=== PATIENT | male | born 1945 | race Caucasian/White ===

== ENCOUNTER 2018-09-05 09:32 | Outpatient (CLI) | payer OTHER, SELFPAY ==
--- NOTE | 2018-09-05 09:22 | DI.RAD_ITS ---
SYMPTOMS/DIAGNOSIS: PAIN RT SHOULDER AND LT MIDDLE FINGER RIGHT SHOULDER: There is spurring at the AC joint and tip of the acromion. There is mild spurring at the glenoid and lesser tuberosity. The humeral head appears normally positioned. IMPRESSION: Mild to moderate degenerative changes. LEFT MIDDLE FINGER: The distal interphalangeal joint shows mild joint space narrowing and periarticular spurring. No bony erosions are seen. The proximal interphalangeal joint has a normal appearance. There is mild spurring at the first metacarpal phalangeal joint. 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
== END 2018-09-05 09:52 ==
PROVIDERS: PCP Internal Medicine; Referring Provider Internal Medicine; Visit Provider Orthopaedic Surgery
DX: M25.511 Pain in right shoulder (principal); M19.011 Primary osteoarthritis, right shoulder; M79.645 Pain in left finger(s); M19.042 Primary osteoarthritis, left hand; M71.342 Other bursal cyst, left hand
CPT/HCPCS: 99201; 99213; 73030; 73140

== ENCOUNTER 2018-12-26 11:14 | Day surgery (SDC) | payer OTHER, SELFPAY ==
[2018-12-26 11:34] VITALS: PULSE 59; TEMP 35.8
[2018-12-26 11:42] VITALS: BP 156/82; PULSE 59; RESP 18; TEMP 35.8; O2SAT 100
[2018-12-26] MEDS: Lidocaine 2% Multi-Dose 50 ML VIAL (13:19)
--- NOTE | 2018-12-26 13:49 | PDOC.DSDIS_ITS ---
Discharge Plan Disposition Patient Disposition: HOME Condition: Good Discharge Details Reason For Visit: Excision of mucous cyst R middle finger Attending Provider: Marshall Llanos Primary Care Provider: Mark Anthony Mi Home Meds and New Rx's Prescriptions: New hydrocodone-acetaminophen 5-325 mg tablet 1 tab PO Q6H PRN (Reason: pain) Qty: 7 RF: 0 Continued PreserVision AREDS 7,160-113-100 [id number] Tablet 1 tab PO BID RF: 0 Discharge Instructions Additional Instructions: Keep dressings dry and intact. Follow up with in one week. Use R hand as much as discomfort allows. Take hydrocodone for pain that is NOT relieved by tylenol or ibuprofen. Referrals: Marshall Llanos MD [ [facility] STAFF PHYSICIAN] - (f/u in one week.) Activity:: Activity as Tolerated Remove Dressings/Wound Care:: Do Not Remove Shower/Bathe:: Cover Diet:: As Tolerated Discharge Orders Discharge Orders: Discharge Order (Routine); Ordered 12/26/18 Ordered By: Marshall Llanos DS: Diagnosis Discharge Diagnosis (1) Mucous cyst of digit of right hand: Status: Acute
--- NOTE | 2018-12-27 07:01 | ROE_ITS ---
REPORT OF OPERATIVE PROCEDURE DATE OF PROCEDURE December 26, 2018 PREOPERATIVE DIAGNOSIS Mucous cyst left middle finger. POSTOPERATIVE DIAGNOSIS Mucous cyst left middle finger. PROCEDURE Excision of Mucous cyst left middle finger. ANESTHESIA Digital block 1% Xylocaine solution and 0.5% Marcaine with epinephrine solution. SURGEON Marshall Llanos M.D. INDICATIONS This is a 73-year-old white male with an enlarging mucous cyst on the dorsum of his left middle finge r. This had increased in size which caused a deformity in his fingernail. Excision of mucous cyst was recommended to alleviate his discomfort and correct the deformity of his fingernail. The risk, compl ications of the procedure were explained to the patient in detail preoperatively. DESCRIPTION OF PROCEDURE The patient was taken to the Procedure Room on 12/26/2018. The patient was placed supine on the stretc her. The left hand was prepped and draped free in the usual sterile fashion. I performed a digital b lock at the level of the metacarpal neck of the left middle finger with 1% Xylocaine solution. I then infiltrated around the mucous cyst with 1% Xylocaine solution. An ulnar-based skin flap was then cre ated incorporating the mucous cyst by making an incision through the cuticle of the nail at the very radial side of his mucous cyst, and then curving around the mucous cyst proximally to get back to the midline. The mucous cyst was then elevated along with the overlying skin in the flap. The origin of the cyst was determined and the area was rongeured so there was bleeding tissue. I then used sharp di ssection to peel the mucous cyst off the overlying skin. I used a rongeur to complete the debridement . A digital block was then performed with 0.5% Marcaine with epinephrine solution for postoperative a nalgesia. The skin edges were then loosely approximated with three interrupted #4-0 Nylon sutures. Th e wound was dressed with Xeroform gauze, and then Tubegauz. The patient tolerated the procedure well. He was discharged to the Day Surgery Unit in good condition. The patient was discharged from the Day Surgery Unit with instructions to keep his dressings dry and intact. He will followup with Dr. Llanos in one week for dressing change and wound check. He may use his right hand as much as discomfort allows. He is given a prescription of hydrocodone with APAP 5/325, 1 tablet every 6 hours as needed for pain not relieved by Tylenol or ibuprofen.
== END 2018-12-26 14:15 | disposition home or self-care (01) ==
PROVIDERS: PCP Internal Medicine; Visit Provider Orthopaedic Surgery
PROC: (CPT 26160; principal; 2018-12-26 13:00)
DX: M71.342 Other bursal cyst, left hand (principal)
CPT/HCPCS: 26160

== ENCOUNTER → 2019-01-02 10:31 | Outpatient (BNVA) | payer OTHER, SELFPAY | PROVIDERS: PCP Internal Medicine; Referring Provider Internal Medicine; Visit Provider Orthopaedic Surgery | DX: M67.442 Ganglion, left hand (principal); Z98.890 Other specified postprocedural states; Z47.89 Encounter for other orthopedic aftercare ==

== ENCOUNTER → 2019-01-09 09:34 | Outpatient (BNVA) | payer OTHER, SELFPAY | PROVIDERS: PCP Internal Medicine; Referring Provider Internal Medicine; Visit Provider Orthopaedic Surgery | DX: Z47.89 Encounter for other orthopedic aftercare (principal); M67.442 Ganglion, left hand ==

== ENCOUNTER → 2019-06-24 14:06 | Outpatient (BNVA) | payer OTHER, SELFPAY | PROVIDERS: PCP Nurse Practitioner Family; Referring Provider Internal Medicine; Visit Provider Surgery | DX: R19.4 Change in bowel habit (principal) | CPT/HCPCS: 99203; 99213 ==

== ENCOUNTER 2019-07-02 06:18 | Day surgery (SDC) | payer OTHER, SELFPAY ==
[2019-07-02 06:44] VITALS: BP 141/68; PULSE 64; RESP 16; TEMP 36.2; O2SAT 100
[2019-07-02] MEDS: Lactated Ringers 1,000 ML 80 ML IV (07:00)
--- NOTE | 2019-07-02 07:45 | BOWEL_PTH ---
PATIENT: Sav Rose LOC: [facility] U#:[id number] AGE/SX: 73/M ROOM: RE07/02/[address]: Selene Nelson MD : 1945 BED: DIS: 07/02/2019 SPEC #: [id number] RECD: 07/02/19 12:25 STATUS: KIMBERLY REQ #: [id number] CLOVIS: 07/02/19 07:[address]: Selene Nelson DEPT: Surgical Specimen RECD BY: Anamika Saldana ENTERED: 07/02/19 12:26 SP TYPE: Bowel OTHR DR: Gem Segura Tissues: 1 - BIOPSY BOWEL Procedures: GROSS AND MICRO LEVEL 4 Comments: [id number]
--- NOTE | 2019-07-02 07:57 | W.PM.DSUDISC ---
Discharge Plan Disposition Patient Disposition: HOME Condition: Good Discharge Details Reason For Visit: Colonoscopy Attending Provider: Selene Nelson Primary Care Provider: Gem Segura Home Meds and New Rx's Prescriptions: Continued PreserVision AREDS 7,160-113-100 [id number] Tablet 1 tab PO BID RF: 0 Discontinued polyethylene glycol 3350 17 gram/dose powder 238 g PO ONCE Qty: 238 RF: 0 bisacodyl 5 mg tablet,delayed release (DR/EC) 5 mg PO ONCE Qty: 4 RF: 0 Discharge Instructions Additional Instructions: Findings: One small polyp was removed from the colon. My office will contact you with biopsy results. Follow up: Plan for a screening colonoscopy in 5 years Please call if you develop: fevers >101.5 Nausea or Vomiting Abdominal pain that is not transient DAY SURGERY UNIT POST COLONOSCOPY INSTRUCTIONS 1. Because there will be medication in your system for the next 24 hours, you may feel a little sleepy. Your coordination will be affected. Therefore: a. Do not drive or operate dangerous equipment for 24 hours. b. Do not drink alcohol beverages for 24 hours (not even beer). c. Plan to go home and rest for the day. 2. Generally there are no restrictions on your activity after a day or so has gone by, but you may feel a bit fatigued for a few days. 3 After you arrive home you may have a light meal and return to a normal diet as you can tolerate it without feeling sick to your stomach. 4. After surgery, you may feel pain or discomfort. This should be only transient, but if it persists please contact your doctor. 5. If there are any questions regarding the findings of your procedure, please feel free to contact your doctor. 6. If you are unable to contact your doctor with a problem, contact the hospital at [phone]. 7. Continue all your regular medications unless directed otherwise. I understand the above instructions and have no questions. Signature of Patient or Responsible Adult Escort Date/Time Name of Responsible Adult Escort Signature of Nurse Date/Time Activity:: Activity as Tolerated Diet:: As Tolerated Discharge Orders Discharge Orders: Discharge Order (Routine); Ordered 07/02/19 Ordered By: Selene Nelson DS: Diagnosis Discharge Diagnosis (1) Colon polyp: Status: Acute
[2019-07-02 08:38] VITALS: BP 128/69; PULSE 46; RESP 16; TEMP 36.3; O2SAT 97
--- NOTE | 2019-07-02 09:41 | COLE_ITS ---
DATE OF PROCEDURE: July 02, 2019 PREOPERATIVE DIAGNOSIS: Screening. POSTOPERATIVE DIAGNOSIS: 1. Diminutive ascending colon polyp. 2. Internal hemorrhoids. PROCEDURE: Colonoscopy with cold forceps polypectomy. SURGEON: Selene Nelson M.D. ANESTHESIA: General. INDICATIONS: This is a 73-year-old man whose last colonoscopy was approximately 25 years ago. He antonio s noted that his stools are less regular recently. He has no family history of colon cancer. PROCEDURE: He was placed in the left Dickinson position. Propofol was titrated to sedation. Digital rec toby examination revealed no abnormalities. The scope was advanced to the cecum without difficulty. The ileocecal valve and appendiceal orifice were clearly identified. His prep was excellent. There was a < 1 cm polyp that was removed completely with the cold forceps and sent to pathology, located i n the proximal ascending colon. No other abnormalities were seen throughout the ascending, transvers e, descending, sigmoid colon or rectum, including on retroflex view, with the exception of some promi nent internal hemorrhoids. He tolerated the procedure well and was stable to recovery. He can consi riana a colonoscopy again in five years. He was advised to increase his fiber intake to improve his kavita wel habits. cc: Gem Segura APRN
== END 2019-07-02 09:25 | disposition home or self-care (01) ==
PROVIDERS: PCP Nurse Practitioner Family; Visit Provider Surgery
PROC: 0DJD8ZZ Inspection of Lower Intestinal Tract, Via Natural or Artificial Opening Endoscopic (ICD-10-PCS; CPT 45378; principal; 2019-07-02 07:30)
DX: D12.2 Benign neoplasm of ascending colon (principal); Z12.11 Encounter for screening for malignant neoplasm of colon; K64.8 Other hemorrhoids; R19.4 Change in bowel habit
CPT/HCPCS: 45380; 88305

== ENCOUNTER 2019-07-10 13:48 | Outpatient (REF) | payer OTHER, SELFPAY ==
[2019-07-10 22:11] LABS: HCT 43.5 % (40.0-50.0); HGB 14.2 g/dL (13.5-17.5); Mean Corp. HGB Concentration 32.6 g/dL (32.0-36.0); Mean Corpuscular Hemoglobin 31.7 pg (27.0-33.0); Mean Corpuscular Volume 97.1 fL (80-95); Mean Platelet Volume 10.9 fL (8.0-11.0); Platelet Count 285 x1000/uL (130-400); RBC 4.48 m/cumm (4.50-6.00); RBC Distribution Width 13.8 % (11.8-14.1)
[2019-07-10 22:26] LABS: Anion Gap 8.5 mmol/L (3-11); BUN 18 mg/dL (7-18); CO2 28.5 mmol/L (21.0-32.0); CREATININE 1.22 mg/dL (0.70-1.30); Calcium 9.6 mg/dL (8.5-10.1); Chloride 105 mmol/L (98-107); Estimated GFR 57.91 (mL/min/1.73m2); Glucose 98 mg/dL (74-106); Potassium 4.9 mmol/L (3.5-5.1); Sodium 142 mmol/L (136-145)
== END 2019-07-10 14:08 ==
LOC: NCHCN 13:48
PROVIDERS: PCP Nurse Practitioner Family; Visit Provider Specialist/Technologist Athletic Trainer
DX: Z01.818 Encounter for other preprocedural examination (principal); R69 Illness, unspecified
CPT/HCPCS: 80048; 85027

== ENCOUNTER 2020-07-14 11:30 | Outpatient (CLI) | payer OTHER, SELFPAY ==
--- NOTE | 2020-07-14 11:00 | DI.RAD_ITS ---
EXAM: XR SHOULDER RT COMPLETE 2+V CLINICAL HISTORY: shoulder pain. TECHNIQUE: 2D digital imaging was performed. COMPARISON: CR XR shoulder RT complete 2+V from 09/05/2018 FINDINGS: BONES: No acute fracture is present. No bony destructive lesion is seen. Spurring at the lesser tuber osity versus adjacent calcification. JOINTS: No dislocation present. Mild spurring at the AC joint and glenohumeral joint. SOFT TISSUE: Sternal wires. IMPRESSION: Mild to moderate degenerative changes. Question of a spur versus adjacent calcification of the lesse r tuberosity. DATA REPOSITORY: RADIATION DOSE DELIVERED:
== END 2020-07-14 11:50 ==
PROVIDERS: PCP Nurse Practitioner Family; Referring Provider Nurse Practitioner Family; Visit Provider Orthopaedic Surgery
DX: M19.011 Primary osteoarthritis, right shoulder (principal); S43.004A Unspecified dislocation of right shoulder joint, initial encounter; W01.10XA Fall on same level from slipping, tripping and stumbling with subsequent striking against unspecified object, initial encounter; M25.511 Pain in right shoulder
CPT/HCPCS: 99213; 73030

== ENCOUNTER → 2020-08-11 10:43 | Outpatient (BNVA) | payer OTHER, SELFPAY | PROVIDERS: PCP Nurse Practitioner Family; Referring Provider Nurse Practitioner Family; Visit Provider Student in an Organized Health Care Education/Training Program | DX: M75.21 Bicipital tendinitis, right shoulder; M75.51 Bursitis of right shoulder; W01.0XXA Fall on same level from slipping, tripping and stumbling without subsequent striking against object, initial encounter | CPT/HCPCS: 99214 ==

== ENCOUNTER 2020-08-24 01:55 | Outpatient (CLI) | payer OTHER, SELFPAY ==
--- NOTE | 2020-08-24 08:15 | DI.MRI_ITS ---
EXAM: MR UPPER JOINT RT WO CLINICAL HISTORY: Traumatic rotator cuff tear,FAILED CONSERVATIVE TREATMENTS,RT SHOULDER TECHNIQUE: Multiplanar multisequence MRI of the shoulder was performed. COMPARISON: CR XR SHOULDER RT COMPLETE 2+V from 07/14/2020 CR XR SHOULDER RT COMPLETE 2+V from 07/14/2020 FINDINGS: MARROW:There is no evidence of fracture, Hill-Sachs deformity, nor ominous osseous lesions. ROTATOR CUFF MECHANISM: AC JOINT/ACROMIUM: There are moderate degenerative changes in the acromioclavicular joint. Undersurf dedrick of the acromion is flat.. There is no evidence of os acromiale. Supraspinatus: High-grade complete tear with retraction of the musculotendinous junction to the mid a spect of the humeral head and continuity of fluid between the joint space and subacromial bursa regio n. No prominent muscle atrophy. Infraspinatus: Intact. No evidence of tear nor muscle atrophy. Teres Minor: Intact. No evidence of tear nor muscle atrophy. Subscapularis/anterior cuff: Abnormal signal in the multipennate insertional fibers anterior to the l theresa tuberosity. Partial tearing. Mild atrophy. BICEPS TENDON: Exhibits normal position within the intertubercular groove. There is abnormal signal within the tendon the anchor region and at the labral attachment. LABRUM: Mild increased signal seen in the superior labrum posterior to the biceps attachment.. The p osterior labrum is intact. There is tearing of the inferior labrum. Blunting of the anterior labrum . GLENOHUMERAL JOINT: Prominent joint effusion with extension into the medial recess and down the long head biceps tendon and continuous with the subacromial space due to the large full-thickness tear of the supraspinatus. There is no loose intra-articular body evident. There are degenerative subarticu lar cyst in the lateral humeral head. No obvious capsular tear. The inferior glenohumeral ligament is intact. Small osteophyte noted on the inferior articular surface of the humeral head. Mild narro wing of the Burt cartilage. No prominent chondral defects. QUADRILATERAL SPACE: No evidence of mass in the region of the axillary nerve and dorsal circumflex hu meral vessels. Visualized triceps muscle at this level appears unremarkable. IMPRESSION: 1. There is a large full-thickness tear of the supraspinatus with retraction of the musculotendinous junction to the mid humeral head level and in AP bare area of 3 centimetres. There is no prominent a trophy of the supraspinatus. Infraspinatus appears intact. 2. There is significant signal abnormality consistent with partial tearing of the anterior cuff-subsc apularis. 3. Increased signal is noted within the long head biceps tendon intra-articular aspect but no full-th ickness tear. Mild abnormal signal noted in the superior labrum. Inferior labral tearing is noted. Mild irregularity of the anterior labrum. Posterior labrum appears intact. No evidence of paralabr al cyst. 4. Prominent glenohumeral joint effusion continuity to the subacromial space and subcoracoid recess. Also down the long head biceps tendon sheath. 5. Mild osteoarthritic degenerative changes in the glenohumeral joint. Also degenerative changes in the acromioclavicular joint. DATA REPOSITORY:
== END 2020-08-24 02:15 ==
PROVIDERS: PCP Nurse Practitioner Family; Visit Provider Student in an Organized Health Care Education/Training Program
DX: S46.011A Strain of muscle(s) and tendon(s) of the rotator cuff of right shoulder, initial encounter (principal); M25.411 Effusion, right shoulder; M19.011 Primary osteoarthritis, right shoulder
CPT/HCPCS: 73221

== ENCOUNTER → 2020-09-08 13:07 | Outpatient (BNVA) | payer OTHER, SELFPAY | PROVIDERS: PCP Nurse Practitioner Family; Referring Provider Nurse Practitioner Family; Visit Provider Student in an Organized Health Care Education/Training Program | DX: S46.011D Strain of muscle(s) and tendon(s) of the rotator cuff of right shoulder, subsequent encounter (principal); S43.004D Unspecified dislocation of right shoulder joint, subsequent encounter; X58.XXXD Exposure to other specified factors, subsequent encounter; M75.21 Bicipital tendinitis, right shoulder; M75.51 Bursitis of right shoulder | CPT/HCPCS: 99214; 99215 ==

== ENCOUNTER 2020-09-11 19:36 | Outpatient (REF) | payer OTHER, SELFPAY ==
[2020-09-11 20:38] LABS: ALT 28 U/L (16-63); AST 16 U/L (15-37); Albumin 4.5 g/dL (3.4-5.0); Alkaline Phosphatase 44 U/L (46-116); Anion Gap 6.9 mmol/L (3-11); BUN 21 mg/dL (7-18); CO2 29.1 mmol/L (21.0-32.0); CREATININE 1.29 mg/dL (0.70-1.30); Calcium 9.6 mg/dL (8.5-10.1); Calculated LDL 125 mg/dL (<100); Chloride 105 mmol/L (98-107); Cholesterol 199 mg/dL (<200); Estimated GFR 54.01 (mL/min/1.73m2); Glucose 101 mg/dL (74-106); HDL Cholesterol 50 mg/dL (40-60); Potassium 4.4 mmol/L (3.5-5.1); Sodium 141 mmol/L (136-145); Total Protein 6.9 g/dL (6.4-8.2); Triglyceride 123 mg/dL (<150)
[2020-09-11 21:09] LABS: COMMENT (LAB VIEW ONLY) 40.69 mg/dL; Microalb ug/mg Crea 7.1 ug/mg Cr
== END 2020-09-11 19:56 ==
LOC: NCHCN 19:36
PROVIDERS: PCP Nurse Practitioner Family; Visit Provider Nurse Practitioner Family
DX: I10 Essential (primary) hypertension (principal); K30 Functional dyspepsia; M25.511 Pain in right shoulder
CPT/HCPCS: 80053; 80061; 82043; 82570

== ENCOUNTER 2020-09-14 04:35 | Outpatient (CLI) | payer OTHER, SELFPAY ==
[2020-09-15 14:37] LABS: COVID-19 RT-PCR UVMMC Result Negative (Negative)
== END 2020-09-14 04:55 ==
PROVIDERS: PCP Nurse Practitioner Family; Visit Provider Student in an Organized Health Care Education/Training Program
DX: Z11.52 Encounter for screening for COVID-19 (principal); Z01.818 Encounter for other preprocedural examination
CPT/HCPCS: U0003

== ENCOUNTER 2020-09-17 06:18 | Day surgery (SDC) | payer OTHER, SELFPAY ==
[2020-09-17] VITALS (10 sets, daily range): BP systolic 114–169; BP diastolic 55–92; PULSE 71–79; RESP 13–22; TEMP 36–36.8; O2SAT 97–99
[2020-09-17] MEDS: Lactated Ringers 1,000 ML 100 ML IV (06:58)
[2020-09-17] MEDS: Bupivacaine LIPOSOME/PF 133 MG/10 ML VIAL IJ (07:20)
[2020-09-17] MEDS: Bupivacaine 0.5% Pres-Free 30 ML VIAL (07:20)
[2020-09-17] MEDS: ceFAZolin 2 GM/50 ML BAG IVPB (07:49)
[2020-09-17] MEDS: EPINEPHrine 30 MG/30 ML VIAL (08:31)
[2020-09-17] MEDS: fentaNYL 100 MCG/2 ML VIAL IVP ×2 (11:10→11:18)
--- NOTE | 2020-09-17 11:29 | W.PM.DSUDISC ---
Discharge Plan Disposition Patient Disposition: HOME Condition: Stable Discharge Details Reason For Visit: Right shoulder surgery Attending Provider: Lacho Salgado Primary Care Provider: Gem Segura Home Meds and New Rx's Prescriptions: New aspirin 81 mg tablet,delayed release (DR/EC) 81 mg PO DAILY 14 Days Qty: 14 RF: 0 tramadol 50 mg Tablet 50 mg PO Q8H PRN PRN (Reason: severe pain) Qty: 12 RF: 0 celecoxib 50 mg capsule 50 mg PO DAILY PRN (Reason: pain) Qty: 30 RF: 0 Continued PreserVision AREDS 7,160-113-100 [id number] Tablet 1 tab PO BID RF: 0 amlodipine 5 mg tablet 5 mg PO DAILY RF: 0 omeprazole 20 mg capsule,delayed release(DR/EC) 20 mg PO DAILY RF: 0 Discontinued ibuprofen 800 mg tablet 800 mg PO BID PRN (Reason: pain) Qty: 60 RF: 0 gabapentin 300 mg capsule 300 mg PO DAILY RF: 0 Discharge Instructions Additional Instructions: Surgery: Shoulder arthroscopy with rotator cuff repair, biceps tenodesis, extensive debridement including capsular release, anterior labral Bankart repair, and subacromial decompression. Activity: You should keep your arm at your side in a neutral position at all times except for physical therapy. Do not try to lift or raise your arm using your own muscles. You should use the sling whenever you are out of the house. You may have to adjust the abduction pillow or remove it for comfort. At home it is best to remove the sling and rest the arm on a pillow at your side or support the operative side with your other hand. You may allow the arm to dangle at your side. A physical therapy prescription will be sent electronically to begin in 2-3 weeks. Prescriptions: Aspirin 81 mg take 1 daily to prevent a blood clot for 2 weeks Celecoxib 50 mg take 1 every 24 hours with a meal as needed for moderate pain Tramadol 50 mg take 1 every 8 hours as needed for severe pain You may use [id number] Tylenol (acetaminophen) as needed for mild pain. These pain medications may be taken all at once or in different combinations as needed. Also, recommend Colace (docusate) as a stool softener as surgery and pain medicine cause constipation. Dressings: Remove shoulder bandage after 3 days. Leave the sticky Steri-Strips in place until they fall off or remove them after you shower. Cover the incisions with Band-Aids or leave them open to air. You may shower after 5 days. Follow-up: 10-[address] Salgado You may take off the leg compression stockings this evening at home. You may also leave them on a few days longer if you have a history of leg swelling or edema. Let us know right away if you develop any redness, drainage, fevers, chest pain, or trouble breathing. Do not drink alcohol or drive for at least 24 hours after anesthesia. Please call the office during business hours with any questions or concerns. Referrals: Lacho Salgado MD [ [facility] STAFF PHYSICIAN] - Discharge Orders Discharge Orders: Discharge Order (Routine); Ordered 09/17/20 Ordered By: Lacho Salgado DS: Diagnosis Discharge Diagnosis (1) Tendonitis of long head of biceps brachii of right shoulder: Status: Acute (2) Traumatic tear of right rotator cuff: Status: Acute (3) Bursitis of right shoulder: Status: Acute (4) Dislocation of shoulder, right, closed: Status: Acute
[2020-09-17] MEDS: HYDROmorphone 2 MG/ML VIAL IVP (11:32)
--- NOTE | 2020-09-17 11:50 | W.PM.OP ---
Date of service: 09/17/20 Time of Service: 09:00 Operative Note Operative Note DATE OF PROCEDURE: 09/17/20 PRE-OP DIAGNOSIS: Right shoulder: 1. Rotator cuff tear 2. LHB tendinopathy 3. Bursitis 4. Dislocation POST-OP DIAGNOSIS: same PROCEDURE: Right: 1. Rotator cuff repair, CPT# 99986. This involved repair of the subscapularis and supraspinatus using anchors and sutures to reattach the rotator cuff back to the footprint of the lesser and greater tuberosity. 2. Arthroscopic biceps tenodesis, CPT# 71675. This involved arthroscopically suturing and reattaching the long head of the biceps tendon to the proximal humerus at the superior margin of the bicipital groove at the correct tension. 3. Extensive debridement, CPT# 20967. This involved using arthroscopic hand instruments, power instruments, and radiofrequency instruments to release to release the long head of the biceps tendon and debride areas of labral tearing synovitis within the glenohumeral joint anteriorly, superiorly and posteriorly. MGHL and anterior capsule were released to mobilize the subscapularis tendon and prevent stiffness. Significant scar tissue and rotator cuff tendon remnant were debrided from the humeral head about the lesser and greater tuberosities. 4. Subacromial decompression, CPT# 17336. This involved using arthroscopic power instruments and a radiofrequency wand to complete a bursectomy. 5. Anterior labral Bankart repair, CPT#87899. This involved mobilizing and preparing the anterior inferior glenoid rim for labral repair, which was completed with suture tape and suture anchor. The tax accounting assistant was medically required in order to help assist in techniques above, which require positioning the arm, holding the arthroscope, and manipulating multiple instruments and sutures at the same time. This cannot be done without the help of an experienced tax accounting assistant. SURGEON: Lacho Salgado COMMERCIAL M[employer]GAGE BROKER: Brynn Berger ANESTHESIA: GETA and regional ESTIMATED BLOOD LOSS: 10 PATHOLOGY: none sent COMPLICATIONS: None Patient was transported to: PACU Patient's condition: stable Implants: Arthrex: 4.75mm SwiveLocks x 4 and 2.9mm PushLock x1 Indications: The patient was diagnosed with the above conditions and appropriately indicated for surgical intervention. Please see complete medical record for details. Findings: Exam under anesthesia: Full, symmetrical range of motion without instability Glenohumeral joint: Profound anterior, superior, and posterior synovitis. Is full-thickness retracted supraspinatus tear upper portion subscapularis tear with medial displacement obscuring the MGHL well as impressive, signed and medially dislocated long head of biceps tendon. Long head biceps tendon injection split tear frame of the intra-articular portion as well as degenerative type SLAP tear. Reasonably preserved glenohumeral articular cartilage. Mildly displaced anterior inferior labral tear Bankart type injury. No Hill-Sachs lesion. Intact articular infraspinatus. Subacromial space: Significant bursitis. Full-thickness retracted supraspinatus tear with significant tendon thickening fraying and likely chronic degeneration. Significant tendon remnant over the lateral aspect of the greater tuberosity. Intact infraspinatus. No significant subacromial bone spur. Procedure Description: In the operating room, general anesthesia was induced. Bilateral shoulders were examined. The patient was positioned in the beachchair position. All bony prominences were well-padded. Preoperative antibiotics were administered. The shoulder was prepped and draped in the usual sterile fashion. The correct patient, procedure, and side of the procedure were all verified prior to incision. Starting through the posterior portal a standard complete diagnostic arthroscopy was performed of the glenohumeral joint including inspection of the long head of the biceps, anterior and superior labrum, subscapularis tendon, supraspinatus and infraspinatus tendons, and axillary recess. The glenoid and humeral head cartilage as well as the posterior labrum were inspected from an anterior viewing portal. Significant findings and interventions noted above. Portals were established at the superior anterior lateral as well as anterior locations. The long head biceps tendon was secured using a suture tape cinch mode and then the free and passed through the tendon. The biceps tendon was released from the superior labrum using arthroscopic scissors withdrawn out the superior anterolateral portal. Through the anterior portal the subscapularis tendon and lesser tuberosity were debrided. The [facility] L was released carefully using arthroscopic scissors. Liberator was used to free up the subscapularis anteriorly and posteriorly. Rotator cuff grasper was used to confirm appropriate excursion to the lesser tuberosity with the arm in a neutral position. Lesser tuberosity was pared using mechanical shaver to optimize bone tendon healing. Using a 2 portal technique, a self retrieving suture passer was used to pass a suture tape fiber link through the lateral and superior subscapularis incorporating the comma tissue. This stitch was used for traction and passing of a fiber tape with mattress more medially and centrally in the subscapularis tendon body. The punch was used to localize placement of the anchor. Both sutures were passed through the anchor eyelet from medial to lateral and the biceps tendon stitch from lateral to medial, and the anchor was brought down to the bone with the sutures tensioned appropriately. The arm was brought through full external rotation demonstrating no restricted motion due to the repair and secure fixation of the subscapularis tendon and anchor to bone. Long head of biceps tendon was also appropriately fixated at the superior aspect of the bicipital groove. The [facility] L tendon was then in a more appropriate location but not retracted medial glenoid. The previously released its were shaved to prevent adhesion and external rotation contracture. The previously noted anterior inferior labral tear extended from 3:00 to about 5:00. There is synovitis between the chondral labral junction. Although it somewhat unusual to find a labral tear procedure with massive rotator cuff repair and the patient's age, the labral tissue was in an appropriate reduced position after gentle mobilization and decision was made to proceed with a simple 1 anchor repair. The anterior portal was redirected just over the regulars tendon with appropriate trajectory to the 4:30 position. Liberator's and rasp were used to optimize glenoid rim for labral healing. A 90 degree suture lasso was used to incorporate the anterior inferior labrum only slightly inferior to the planned anchor location and taking care not to incorporate any inferior ligamentous or anterior capsular structures to prevent stiffness. A suture tape in cinch mode within past around the labrum tissue. Drill guide was placed in the appropriate rim of the prepared glenoid, predrilled, and then sutures passed through anchor eyelet and anchor secured into bone. Was tested found to be stable and have also stabilized the labral tear more superiorly and inferiorly. Attention was then turned to the subacromial space. Starting through the posterior portal, the arthroscope was directed into the subacromial space. A lateral 50 yard line lateral portal was created. A combination of power instruments and a radiofrequency ablator were used to debride bursitis anteriorly, posteriorly, and laterally as well as expose but preserve bone on the undersurface of the acromion. The coracoacromial ligament was preserved. The bursectomy was completed viewing laterally and working from posteriorly and the rotator cuff was thoroughly inspected with findings noted above. Cannulas inserted at the posterior superior lateral margin of the acromion. Significant tendon remnant was debrided lateral to the articular margin of the greater tuberosity exposing a full-thickness somewhat medial tear of the supraspinatus with an intact infraspinatus posteriorly and intact subscapularis and interval tissue anteriorly now post repair. Her tuberosity was prepared to optimize tendon bone healing to the lateral aspect of the greater tuberosity prior to the drop off down the lateral proximal humerus. The supraspinatus was carefully mobilized using various liberator's and tissue graspers and was sucking and degenerated but after mobilization and debridement of the worst quality tissue was able to come across the medial margin footprint and the decision was made to proceed with single row repair. A self retrieving suture passer was used to place an inverted horizontal mattress fiber tape stitch in the anterior supraspinatus. A punch was used to localize the first medial row anchor most anteriorly. This was repeated for a full and posterior single row anchors each with individual inverted horizontal mattress sutures. The entirety of the supraspinatus was reapproximated over the greater tuberosity and secured adjacent to and intact infraspinatus posteriorly. The repair was probed inspected through range of motion and found to be remarkably stable considering advanced patient age and tendon degeneration and significant tendon remnant laterally. The shoulder was drained of arthroscopic fluid. All portal sites were copiously irrigated. These incisions were closed using 3-0 Monocryl in a buried fashion, covered with Mastisol, Steri-Strips, Xeroform, dry gauze, and ABDs. The dressings were covered and secured with Medipore tape. The operative extremity was placed into a sling for immobilization. The patient awoke from anesthesia without complication and was transferred to the recovery room in a stable condition.
[2020-09-17] MEDS: Celecoxib 200 MG CAP PO (12:48)
== END 2020-09-17 13:45 | disposition home or self-care (01) ==
PROVIDERS: PCP Nurse Practitioner Family; Visit Provider Student in an Organized Health Care Education/Training Program
PROC: (CPT 29827; principal; 2020-09-17 07:30)
DX: S46.011A Strain of muscle(s) and tendon(s) of the rotator cuff of right shoulder, initial encounter (principal); M75.121 Complete rotator cuff tear or rupture of right shoulder, not specified as traumatic; M75.21 Bicipital tendinitis, right shoulder; M75.51 Bursitis of right shoulder; S43.004A Unspecified dislocation of right shoulder joint, initial encounter; S43.431A Superior glenoid labrum lesion of right shoulder, initial encounter; X58.XXXA Exposure to other specified factors, initial encounter; M65.811 Other synovitis and tenosynovitis, right shoulder; G89.18 Other acute postprocedural pain; K21.9 Gastro-esophageal reflux disease without esophagitis
CPT/HCPCS: 29806; 29827; 29828; 29826; 29823; C1713; 76942; J0131; J0690; J1100; J1885; J2001; J2250; J2405; J3010

== ENCOUNTER → 2020-09-29 14:16 | Outpatient (BNVA) | payer OTHER, SELFPAY | PROVIDERS: PCP Nurse Practitioner Family; Referring Provider Nurse Practitioner Family; Visit Provider Student in an Organized Health Care Education/Training Program | DX: Z47.89 Encounter for other orthopedic aftercare (principal); M75.51 Bursitis of right shoulder; M75.21 Bicipital tendinitis, right shoulder ==

== ENCOUNTER → 2020-11-17 07:53 | Outpatient (BNVA) | payer OTHER, SELFPAY | PROVIDERS: PCP Nurse Practitioner Family; Visit Provider Student in an Organized Health Care Education/Training Program | DX: Z47.89 Encounter for other orthopedic aftercare (principal); M75.21 Bicipital tendinitis, right shoulder; M75.51 Bursitis of right shoulder ==

== ENCOUNTER → 2021-01-05 08:07 | Outpatient (BNVA) | payer OTHER, SELFPAY | PROVIDERS: PCP Nurse Practitioner Family; Referring Provider Nurse Practitioner Family; Visit Provider Student in an Organized Health Care Education/Training Program | DX: Z47.89 Encounter for other orthopedic aftercare (principal); M75.51 Bursitis of right shoulder; M75.21 Bicipital tendinitis, right shoulder | CPT/HCPCS: 99213 ==

== ENCOUNTER 2021-09-08 01:17 | Outpatient (CLI) | payer MEDICARE, SELFPAY ==
--- NOTE | 2021-09-08 | DI.MRI_ITS ---
Exam(s) MR LOWER JOINT RT WO EXAM: MR LOWER JOINT RT WO CLINICAL HISTORY: RT KNEE PAIN M25.561. TECHNIQUE: Multiplanar multisequence MRI was performed. COMPARISON: MR MRI L LOWER JOINT WO CONT from 04/21/2010 FINDINGS: MR examination of the knee was performed according to the usual protocol. There is marked motion art ifact on multiple pulse sequences which limits the examination. Bones: There is moderate marginal osteophyte formation of all 3 joints of the knee. No gross fractur e identified. No significant bony signal abnormality seen apart from slight periarticular areas of e clarisa in patella probably associated with degenerative change and minimal subchondral cystic change of the intercondylar eminence of the tibia cruciate ligaments markedly abnormal signal in anterior cruc iate ligament and posterior cruciate ligament. Posterior cruciate findings may represent partial int rasubstance tear and/or degeneration. There appears to be some tearing at the tibial attachment of t he ACL, there is probable degenerative signal abnormality also present in the ACL. There does not ap pear to be a full-thickness ACL tear. Medial tibiofemoral joint: Poorly visualized articular cartilage. Chronic appearing complex medial m eniscal tear with deficient meniscus. Grade 2 MCL tear, probably chronic. Lateral tibiofemoral joint: Probable posterior horn Lory attachment tear lateral meniscus. Lateral m eniscus is degenerated and peripherally displaced from the joint. Articular cartilage poorly visuali zed. No gross posterolateral corner injury. No gross lateral collateral ligament tear. Patellofemoral joint: Moderate degenerative articular cartilage thinning of patella and femoral troch annamaria. No gross abnormality of patellar or quadriceps tendons. No retinacular tear. Additional: Abnormal signal at medial gastrocnemius attachment on the femur, probable partial tear, l ikely acute or subacute. IMPRESSION: Examination is markedly limited by motion artifact. Probable partial thickness non retracted medial gastrocnemius attachment tear. Medial and lateral meniscal tears, presumably chronic Degenerative signal abnormality of ACL and PCL, probable partial thickness tibial attachment ACL tear . Please see above discussion for additional findings. DATA REPOSITORY:
== END 2021-09-08 01:37 ==
PROVIDERS: PCP Nurse Practitioner Family; Visit Provider Nurse Practitioner Family
DX: M25.561 Pain in right knee (principal); S83.281A Other tear of lateral meniscus, current injury, right knee, initial encounter; S83.241A Other tear of medial meniscus, current injury, right knee, initial encounter
CPT/HCPCS: 73721

== ENCOUNTER 2021-09-14 08:33 | Outpatient (CLI) | payer MEDICARE, SELFPAY ==
--- NOTE | 2021-09-14 08:15 | DI.RAD_ITS ---
Exam(s) XR KNEE RT 3V AP,LAT,ROSALIE EXAM: XR KNEE RT 3V AP,LAT,ROSALIE CLINICAL HISTORY: eval R knee for arthritis. TECHNIQUE: 2D digital imaging was performed of the right knee. Three views obtained. AP, lateral an d PA tunnel views were obtained. COMPARISON: MR MR LOWER JOINT RT WO from 09/08/2021 FINDINGS: BONES: No acute fracture is present. No bony destructive lesion is seen. There is an enthesophyte at the superior patella. JOINTS: The knee is normally aligned. No joint effusion is seen. Spurring is seen at the posterior pa tella and the medial femoral tibial joint. There is chondrocalcinosis in the femoral tibial joint sp dedrick. SOFT TISSUE: Atherosclerosis is present. IMPRESSION: Mild degenerative changes of the right knee. DATA REPOSITORY: RADIATION DOSE DELIVERED:
== END 2021-09-14 08:34 | disposition home or self-care (01) ==
LOC: DIORS 08:33
PROVIDERS: PCP Nurse Practitioner Family; Referring Provider Nurse Practitioner Family; Visit Provider Student in an Organized Health Care Education/Training Program
DX: M23.91 Unspecified internal derangement of right knee (principal); M17.11 Unilateral primary osteoarthritis, right knee; S86.111A Strain of other muscle(s) and tendon(s) of posterior muscle group at lower leg level, right leg, initial encounter; S83.281A Other tear of lateral meniscus, current injury, right knee, initial encounter; S83.241A Other tear of medial meniscus, current injury, right knee, initial encounter; X58.XXXA Exposure to other specified factors, initial encounter
CPT/HCPCS: 20610; 73562; 99213; J1040

== ENCOUNTER → 2021-10-25 07:48 | Outpatient (BNVA) | payer MEDICARE, SELFPAY | PROVIDERS: PCP Nurse Practitioner Family; Referring Provider Nurse Practitioner Family; Visit Provider Student in an Organized Health Care Education/Training Program | DX: M17.11 Unilateral primary osteoarthritis, right knee (principal); M23.91 Unspecified internal derangement of right knee | CPT/HCPCS: 99213 ==

== ENCOUNTER 2021-11-15 03:08 | Outpatient (CLI) | payer MEDICARE, SELFPAY ==
[2021-11-15 10:51] LABS: Source Nasal/Nares
[2021-11-15 13:08] LABS: COVID-19 PCR Negative (Negative)
== END 2021-11-15 03:09 | disposition home or self-care (01) ==
PROVIDERS: PCP Nurse Practitioner Family; Visit Provider Student in an Organized Health Care Education/Training Program
DX: Z20.822 Contact with and (suspected) exposure to COVID-19 (principal); Z01.818 Encounter for other preprocedural examination
CPT/HCPCS: 87635; U0005

== ENCOUNTER 2021-11-16 11:21 | Day surgery (SDC) | payer MEDICARE, SELFPAY ==
--- NOTE | 2021-11-16 07:36 | W.PM.DSUDISC ---
Discharge Plan Disposition Patient Disposition: HOME Condition: Stable Discharge Details Reason For Visit: Right Knee Arthroscopy Attending Provider: Emanuel Lares Primary Care Provider: Gem Segura Home Meds and New Rx's Prescriptions: New hydrocodone-acetaminophen 5-325 mg tablet 1 tab PO Q6H PRNQty: 5 0RF ibuprofen 600 mg tablet 600 mg PO TID Qty: 30 0RF Continued PreserVision AREDS 7,160-113-100 [id number] Tablet 1 tab PO BID 0RF Discharge Instructions Stand Alone Forms: Luda Knee Arthroscopy Referrals: Emanuel Lares MD [ [facility] STAFF PHYSICIAN] - Equipment/Supplies: Partial Weight Bearing Crutches Activity:: Activity as Tolerated Remove Dressings/Wound Care:: 72 hours Shower/Bathe:: 72 hours Diet:: As Tolerated Discharge Orders Discharge Orders: Discharge Order (Routine); Ordered 11/16/21 Ordered By: Nadia dHez DS: Diagnosis Discharge Diagnosis (1) Tear of lateral meniscus of right knee: Status: Acute (2) Complex tear of medial meniscus of right knee: Status: Acute
--- NOTE | 2021-11-16 10:13 | W.ANESNERVE ---
Nerve Block Single Injection Procedure Date and Time Date Performed: 11/16/21 Procedure Start: 08:52 Location Where Procedure Performed Procedure Location: Day Surgery Unit Reason Performed: Postoperative Analgesia Requesting Provider: Emanuel Lares Timeout Performed Timeout Performed: Yes Monitoring Used ECG, Blood Pressure and SpO2 Sterility Sterility: Hand Hygiene, Surgical Cap, Surgical Mask, Sterile Gloves and Chlorhexidine Sedation Given During Procedure Sedation Given (Indicate Dose Given): No Sedation given Patient Mental Status Patient Mental Status: Awake Nerve Block 1st Nerve Block: Laterality: Left Block Type: Adductor Canal Needle / Catheter Used: 100mm SonoPlex II Local Anesthetic Bolus (Indicate Dose Given): Lidocaine used for local infiltration of skin, Injected in 3-5ml increments after negative blood aspiration and Bupivacaine 0.25% Dose:: 15 ml Additives (Indicate Dose Given): None Ultrasound: Sterile probe cover and gel used Ultrasound Image Saved?: Yes Nerve Stimulator: Not Used Paresthesia: None Procedure Tolerated: No Complications and Patient tolerated well Procedure Outcome: Successful Performed By: Shemar Mejia
[2021-11-16 11:47] VITALS: BP 143/87; PULSE 67; RESP 16; TEMP 36.2; O2SAT 98
[2021-11-16] MEDS: Lactated Ringers 1,000 ML 80 ML IV (12:00)
--- NOTE | 2021-11-16 12:04 | W.ANESPRE ---
General Info Date of Service Date Performed: 11/16/21 Height: 6 ft 2 in Weight: 86.7 kg Body Mass Index (BMI): 24.5 Surgical Procedure: Operation Date: 11/16/21 15:10 Proposed Procedure Side Surgeon p Knee Arthroscopyw/partial lateral and medial menisectomy Right Emanuel Lares MD Meds Allergies and Home Medications Allergies Allergy/AdvReac Type Severity Reaction Status Date / Time No Known Drug Allergies Allergy none Verified 11/15/21 12:49 Home Medication Medication Instructions Recorded vitamins A,C,Q-july-laoies 7,160 1 tab PO BID 12/26/18 unit-113 mg-100 unit tablet (PreserVision AREDS) hydrocodone 5 mg-acetaminophen 325 1 tab PO Q6H PRN #5 tab 11/16/21 mg tablet ibuprofen 600 mg tablet 600 mg PO TID #30 tab 11/16/21 Current Visit Medications: Current Medications Generic Name Dose Route Start Last Admin Trade Name Freq PRN Reason Stop Dose Admin Acetaminophen 650 mg 11/16/21 07:35 Acetaminophen 325 Mg Tab PO Q4H PRN PRN Ringer's Solution 1,000 mls @ 80 mls/hr 11/16/21 06:00 IV 11/18/21 23:59 INFUSION SEGUN Cefazolin Sodium/Dextrose 2 gm in 50 mls @ 100 mls/hr 11/16/21 06:00 Ancef Duplex IVPB 11/16/21 23:59 PREOP SEGUN Ondansetron HCl 4 mg/ Sodium 52 mls @ 200 mls/hr 11/16/21 07:35 Chloride IVPB Q6H PRN PRN IV Miscellaneous Supplies 1 each 11/16/21 06:00 Iv Access IV 11/18/21 23:59 DIRECTED SEGUN Oxycodone HCl 5 mg 11/16/21 07:35 Oxycodone 5 Mg Tab PO Q3H PRN PRN Pain Sodium Chloride 0 ml 11/16/21 06:00 Normal Saline Flush 10 Ml Syr IV 11/18/21 23:59 PRN PRN Sodium Chloride 0 ml 11/16/21 06:00 Normal Saline 10 Ml Vial IJ 11/18/21 23:59 DIRECTED PRN Sterile Water 0 ml 11/16/21 06:00 Water,Injection,Sterile 10 Ml Vial IJ 11/18/21 23:59 DIRECTED PRN PFSH Active Problems Active Problems: Problem Status Onset Code Salmonella A02.9 Mucous cyst of digit of right hand M67.441 Mucous cyst of finger M67.449 Arthritis M19.90 Colon polyp K63.5 Acute shoulder pain M25.519 Dislocation of shoulder, right, closed 07/11/20 S43.004A Traumatic tear of right rotator cuff 07/11/20 S46.011A Tendonitis of long head of biceps brachii of right shoulder M75.21 Bursitis of right shoulder M75.51 Internal derangement of right knee M23.91 Osteoarthritis of right knee M17.11 Gastrocnemius muscle tear S86.119A Complex tear of medial meniscus of right knee S83.231A Tear of lateral meniscus of right knee S83.281A Medical History Medical History Ramon cyst surgery Heartburn History of Lyme disease Hypertension Medical History Comments:: OJ, no pulp, at 0830 today. Surgical History Surgical History (Updated 11/16/21 @ 11:45 by Iva Bowman) H/O mitral valve repair 2001 (In [place], [place]) (Pt. states everything has been in good working order, hasn't had to f/u with cardiology) History of foot surgery (right) History of left cataract surgery History of left knee surgery History of open heart surgery Valve repair History of right cataract extraction Hx of shoulder surgery right, 2020 S/P colonoscopy 07/02/19 Tobacco Smoking/Tobacco Use Status: Never Alcohol Alcohol Intake: current Alcohol intake frequency: 0-2 drinks per day Alcohol type: beer Substance Use Substance use: Never Substance use type: does not use Vital Signs and Lab Results Vital Signs Most Recent Vital Signs in EMR: Most Recent Vital Signs Temp Pulse Resp BP Pulse Ox 36.2 C L 67 16 143/87 H 98 11/16/21 11:47 11/16/21 11:47 11/16/21 11:47 11/16/21 11:47 11/16/21 11:47 Lab Results Blood Type / Crossmatch: No Data to Display Complete Blood Count: No Data to Display Complete Metabolic Panel: No Data to Display Liver Function Panel: No Data to Display Coagulation Panel: No Data to Display Cardiac Panel: No Data to Display Arterial Blood Gas: No Data to Display Venous Blood Gas: No Data to Display Pancreas Panel: No Data to Display Thyroid Panel: No Data to Display Infectious Disease: Coronavirus (COVID-19)(PCR) Negative (Negative) 11/15/21 09:18 11/15/21 Coronavirus 2019 Source Nasal/Nares 11/15/21 09:18 11/15/21 Blood Cultures: No Data to Display Toxicology Panel: No Data to Display Anesthesia Assessment and Plan Anesthesia History Personal History: No History of Anesthesia Complications Family History: No Family History of Anesthesia Complications Exercise Tolerance Exercise Tolerance: Metabolic Equivalents>4 Pertinent Negatives Pertinent Negatives: No Symptoms of GERD, No Major Cardiovascular Symptoms or Complaints, No Major Pulmonary Symptoms or Complaints and No History of CVA/TIA Cardiac & Pulmonary Exam Cardiac Exam: Normal S1/S2 Heart Sounds Pulmonary Exam: Clear Bilateral Breath Sounds Implantable Cardiac Device Does patient have a Pacemaker or an ICD?: No Airway Exam Known Difficult Airway: No Mallampati Class: 2 Mouth Opening: Normal (> 3cm) Thyromental Distance: Greater than 3 cm Neck Range of Motion: Full ROM Neck Circumference: Normal Teeth Condition: Removable Dentures/Plates Upper and Removable Dentures/Plates Lower ASA Classification ASA Score: ASA 2 Emergency Case?: No NPO Status NPO Status: NPO Clears >2 hours, Solids >8 hours Anesthesia Plan Resuscitation Status: Full Code Anesthesia Technique: Spinal Anesthesia Airway Planned: Natural Airway Monitors Used: Standard Monitors
[2021-11-16 12:07] VITALS: BMI 24.5
[2021-11-16] MEDS: ceFAZolin 2 GM/50 ML BAG IVPB (12:55)
[2021-11-16] MEDS: Bupivacaine 0.5% Pres-Free 30 ML VIAL (13:23)
[2021-11-16 13:47] VITALS: BP 110/81; PULSE 58; RESP 14; TEMP 36; O2SAT 100
[2021-11-16 14:20] VITALS: BP 132/81; PULSE 57; RESP 14; TEMP 36.4; O2SAT 100
--- NOTE | 2021-11-16 14:22 | W.ANESPOSTOP ---
Postoperative Evaluation Date, Time and Location Date Performed: 11/16/21 Time Performed: 14:23 Patient Location: Day Surgery Unit Vital Signs Most Recent Imported Vital Signs: Most Recent Vital Signs Temp Pulse Resp BP Pulse Ox 36 C L 58 L 14 110/81 100 11/16/21 13:47 11/16/21 13:47 11/16/21 13:47 11/16/21 13:47 11/16/21 13:47 Pain Score Most Recent Pain Score: Most Recent Pain Score Pain Level 0 11/16/21 13:47 Assessment Mental Status: Awake (Alert & Oriented to Patient Baseline) Airway and Respiratory Function: Patent airway with normal (patient baseline) respiratory exam Cardiovascular Function: Hemodynamically Stable Hydration Status: Adequately Hydrated Nausea & Vomiting: No Nausea or Vomiting Pain: Pt. Denies Any Pain Peripheral Nerve Block: Patient did not receive a nerve block
[2021-11-16 15:00] VITALS: BP 147/80; PULSE 66; RESP 16; TEMP 36.2; O2SAT 99
[2021-11-16] MEDS: Acetaminophen 325 MG TAB 650 MG PO (15:38)
[2021-11-16 16:56] VITALS: BP 136/72; PULSE 75; RESP 16; TEMP 36.2; O2SAT 95
--- NOTE | 2021-11-16 17:56 | ROE_ITS ---
Date of service: 11/16/21 Time of Service: 13:40 Operative Note Operative Note DATE OF PROCEDURE: 11/16/21 PRE-OP DIAGNOSIS: Right Knee Lateral and Medial Meniscal Tears POST-OP DIAGNOSIS: same PROCEDURE: Right knee arthroscopic partial lateral and medial menisectomy SURGEON: Emanuel Lares Refer to Anesthesia Record ESTIMATED BLOOD LOSS: 0 PATHOLOGY: none sent COMPLICATIONS: None Patient was transported to: PACU Patient's condition: stable Indications: I have seen Sav in clinic for symptoms of a meniscus tear. This was confirmed based on MRI and exam findings. Nonoperative measures were exhausted but disability and pain persisted. I discussed knee arthroscopy with meniscal intervention with the patient. I reviewed the risks of the procedure to include , but not limited to, bleeding, infection, pain, stiffness, damage to nerves or vessels, recurrence, blood clot. Despite these risks, the patient elected to proceed. Findings: A diagnostic arthroscopy was performed with the following findings: Suprapatellar Pouch: No significant inflammation, no loose bodies Medial Compartment: Complex medial meniscal tear, intact meniscal root, grade II chondromalacia and focal areas of the femur and tibia large displaceable meniscal flap Notch: ACL and PCL were intact Lateral Compartment: Complex tear with a primary radial component of the posterior horn adjacent to the posterior root, no significant chondromalacia or signs of arthritis, no loose bodies Patellofemoral Compartment: No significant chondromalacia, no apparent patellar maltracking Procedure Description: Sav was greeted in the preoperative holding area where the correct side was identified and marked. The consent was reviewed with the patient and signed. The history and physical was updated. All questions were answered. He was taken back to the operating room. The patient was placed into the supine position on the operating room table. A nonsterile tourniquet was placed high onto the leg but not used. All bony prominences were well padded. Prophylactic antibiotics in the form of cefazolin were administered. The right leg was then prepped with Chloraprep and draped in a standard fashion with stockinette and extremity drape. A timeout to confirm correct identity, side and site, procedure, allergies, anesthesia, and medical concerns was performed. The leg was placed into a pneumatic leg nolan, [id number]. A standard lateral portal was made at the lateral border of the patella tendon in line with the inferior pole of the patella, soft spot. The skin and deep tissue was incised sharply and the blunt trochar was inserted atraumatically. A diagnostic arthroscopy was performed and the findings are listed above. The suprapatellar pouch had no significant inflammatory change. The patellofemoral articulation showed no articular damage as well as good tracking. The lateral gutter had no loose bodies and the medial gutter had no loose bodies. The knee was brought into some valgus stress in extension to open the medial compartment. A medial portal was made, localized by a spinal needle. The portal was created with an #11 blade through skin and capsule under direct visualization avoiding any meniscal injury. A probe was then inserted into the medial compartment. The medial compartment was fully inspected. The chondral surface of the tibia showed some areas of grade II chondromalacia and the surface of the femur showed the same. The medial meniscus had complex tearing. There was a large loose meniscal fragment with a very small bridge of tissue to the posterior horn. The tear involves the body into the horn and all the way towards the root. The root was still attached and there was some peripheral fibers still in place. There is also some degeneration of adjacent tissue. After evaluation, the meniscus was debrided down to a stable base using a series of biters and arthroscopic samia. It was probed afterwards to confirm that the tear had been removed and the meniscus was stable. I also apply pressure into the popliteal fossa and expressed synovial fluid from a popliteal cyst. The notch was then inspected which showed an intact ACL and an intact PCL. The leg was then brought into a figure of 4 position. The lateral compartment was fully inspected with the arthroscope and a probe. The chondral surface of the lateral femur showed no significant chondromalacia. The chondral surface of the lateral tibia showed no significant chondromalacia. The lateral meniscus had a complex tear adjacent to the posterior root with a primary radial component. After evaluation, the meniscus was debrided down to a stable base using a series of biters and arthroscopic samia. It was probed afterwards to confirm that the tear had been removed and the meniscus was stable. Unfortunately, is largely disconnected the lateral meniscus from the posterior root with only a few peripheral fibers. However, the remnant meniscus was not unstable with adjacent capsular attachments. The arthroscope was brought back into the suprapatellar pouch and the leg was in full extension. The knee was thoroughly irrigated with the arthroscopic fluid on high flow and pressure. Inflow was stopped and excess fluid was removed. The wounds were closed with 4-0 Nylon. They were dressed with Xeroform, 4x4 gauze, ABD pad, Kerlix and an SELVIN wrap. A cryo-cuff was applied. The patient tolerated the procedure well and was returned to the Same Day Surgery area in a stable condition suffering no known complication.
== END 2021-11-16 17:20 | disposition home or self-care (01) ==
LOC: SUR 11:22
PROVIDERS: PCP Nurse Practitioner Family; Visit Provider Student in an Organized Health Care Education/Training Program
PROC: (CPT 29870; principal; 2021-11-16 15:00)
DX: S83.281A Other tear of lateral meniscus, current injury, right knee, initial encounter (principal); S83.231A Complex tear of medial meniscus, current injury, right knee, initial encounter; M17.11 Unilateral primary osteoarthritis, right knee; W19.XXXA Unspecified fall, initial encounter
CPT/HCPCS: 29880; 76942; J0690; J1100; J2405

== ENCOUNTER → 2021-11-29 08:59 | Outpatient (BNVA) | payer MEDICARE, SELFPAY | PROVIDERS: PCP Nurse Practitioner Family; Referring Provider Nurse Practitioner Family | DX: S83.231A Complex tear of medial meniscus, current injury, right knee, initial encounter (principal); X58.XXXA Exposure to other specified factors, initial encounter ==

== ENCOUNTER → 2021-12-27 09:53 | Outpatient (BNVA) | payer MEDICARE, SELFPAY | PROVIDERS: PCP Nurse Practitioner Family; Referring Provider Nurse Practitioner Family; Visit Provider Student in an Organized Health Care Education/Training Program | DX: Z47.89 Encounter for other orthopedic aftercare (principal); Z98.890 Other specified postprocedural states ==

== ENCOUNTER → 2022-01-28 08:36 | Outpatient (BNVA) | payer MEDICARE, SELFPAY | PROVIDERS: PCP Nurse Practitioner Family; Referring Provider Nurse Practitioner Family; Visit Provider Student in an Organized Health Care Education/Training Program | DX: Z47.89 Encounter for other orthopedic aftercare (principal); Z98.890 Other specified postprocedural states ==

== ENCOUNTER 2023-06-27 13:21 | Outpatient (CLI) | payer MEDICARE, SELFPAY ==
--- NOTE | 2023-06-27 13:00 | DI.RAD_ITS ---
Exam(s) XR SHOULDER RT COMPLETE 2+V EXAM: XR SHOULDER RT COMPLETE 2+V CLINICAL HISTORY: RIGHT SHOULDER PAIN. TECHNIQUE: 2D digital imaging was performed. COMPARISON: CR XR SHOULDER RT COMPLETE 2+V from 07/14/2020 FINDINGS: Two views. There is no evidence of fracture or dislocation. There is no significant narrowing of the glenohumer al joint space but there is a small osteophyte on the inferior articular surface of the humeral head evident. Also mild upward subluxation of the humeral head in the glenoid fossa and mild diminution o f the subacromial space evident on the [place] view when compared to June 2020. On the axial view there are lucencies in the lateral aspect of the humeral head greater tuberosity re gion which are either degenerative cysts or possibly anchor tunnels from interval rotator cuff surger y. There is some degenerative change again noted in the AC joint. Coracoid process appears unremarkable . IMPRESSION: Mild-moderate degenerative changes in the glenohumeral joint. Possible interval rotator cuff surgery when compared to prior images of 3 years ago. Mild diminution of the subacromial space and mild upward subluxation of the humeral head in the gleno id fossa when compared to the prior images. If clinically indicated MRI can be performed to determine there is either rotator cuff tear or tear o f interval surgical repair DATA REPOSITORY: RADIATION DOSE DELIVERED:
== END 2023-06-27 13:22 | disposition home or self-care (01) ==
LOC: DIORS 13:21
PROVIDERS: PCP Nurse Practitioner Family; Referring Provider Nurse Practitioner Family; Visit Provider Student in an Organized Health Care Education/Training Program
DX: M75.51 Bursitis of right shoulder; M54.2 Cervicalgia
CPT/HCPCS: 99213; 73030

== ENCOUNTER 2023-11-09 14:10 | Outpatient (REF) | payer MEDICARE, SELFPAY ==
[2023-11-09 14:39] LABS: PTT Activated 24.8 sec (23.6-32.8); Prothrombin Time 10.2 sec (9.1-11.1)
[2023-11-09 14:48] LABS: ALT 25 U/L (16-63); AST 16 U/L (15-37); Albumin 4.2 g/dL (3.4-5.0); Alkaline Phosphatase 51 U/L (46-116); Anion Gap 9.6 mmol/L (3-11); BUN 20 mg/dL (7-18); Bilirubin, Total 1.4 mg/dL (0.2-1.0); CO2 27.4 mmol/L (21.0-32.0); CREATININE 1.3 mg/dL (0.70-1.30); Calcium 9.4 mg/dL (8.5-10.1); Calculated LDL 96 mg/dL (<100); Chloride 108 mmol/L (98-107); Cholesterol 180 mg/dL (<200); Estimated GFR 55.53 (mL/min/1.73m2); Glucose 123 mg/dL (74-106); HDL Cholesterol 51 mg/dL (40-60); Magnesium 2.1 mg/dL (1.8-2.4); Potassium 4.3 mmol/L (3.5-5.1); Sodium 145 mmol/L (136-145); TSH (W/Ref FT4) 1.42 uIU/mL (0.36-3.74); Total Protein 6.6 g/dL (6.4-8.2); Triglyceride 167 mg/dL (<150)
== END 2023-11-09 14:11 | disposition home or self-care (01) ==
LOC: NCHCN 14:10
PROVIDERS: PCP Nurse Practitioner Family; Visit Provider Nurse Practitioner Family
DX: I10 Essential (primary) hypertension (principal); Z95.4 Presence of other heart-valve replacement; Z51.81 Encounter for therapeutic drug level monitoring
CPT/HCPCS: 80053; 80061; 83735; 84443; 85610; 85730

== ENCOUNTER → 2023-12-14 10:13 | Outpatient (BNVA) | payer MEDICARE, SELFPAY | PROVIDERS: PCP Nurse Practitioner Family; Referring Provider Nurse Practitioner Family; Visit Provider Surgery | DX: R13.10 Dysphagia, unspecified (principal); R09.A2 Foreign body sensation, throat; R12 Heartburn; I10 Essential (primary) hypertension; Z95.2 Presence of prosthetic heart valve; I34.0 Nonrheumatic mitral (valve) insufficiency; E78.5 Hyperlipidemia, unspecified; R73.9 Hyperglycemia, unspecified; K63.5 Polyp of colon; Z86.19 Personal history of other infectious and parasitic diseases; K21.9 Gastro-esophageal reflux disease without esophagitis | CPT/HCPCS: 99215 ==

== ENCOUNTER → 2024-01-01 01:54 | Outpatient (CLI) | payer MEDICARE, SELFPAY ==
[2024-01-01] MEDS: Barium Sulfate 40% W/V 1500 CPS 250 ML BTL PO (09:17)
[2024-01-01] MEDS: Barium Sulfate 81% w/w for Oral Suspension 148 GM BTL 80 GM PO (09:18)
[2024-01-01] MEDS: Barium Sulfate 40% W/V 240 ML BTL 70 ML PO (09:19)
--- NOTE | 2024-01-01 09:30 | DI.RAD_ITS ---
Exam(s) RF MODIFIED SPEECH BA SWALLOW TECHNIQUE: Modified barium swallow was performed in conjunction with speech pathology. CONTRAST MATERIAL: Oral barium contrast was administered. COMPARISON: No exams were available for comparison FINDINGS: Note that this is not a dedicated esophagram, distal esophagus not evaluated. There is no evidence of aspiration or penetration of thick or thin liquids or barium coated cookie. Speech pathology report to follow. Note is made of a small Zenker's diverticulum. IMPRESSION: No evidence of aspiration or penetration. RADIATION DOSE DELIVERED: tay Lea=3.08 mGy
--- NOTE | 2024-01-01 09:38 | ST.MBS_ITS ---
Date of Service Date of service: 01/01/24 Time of Service: 09:00 Modified Barium Swallow Study Findings: Video fluoroscopic Swallowing Evaluation (VFSE) / Modified Barium Swallow Study (MBSS) Speech Language Pathology Report Patient referred for VFSE/MBSS from Gem Segura APRN given dysphagia. HPI & Patient report of function: Patient is a 78 year old male with complaint of food sticking in throat (dry solids like pie crust), globus sensation, and hoarseness ongoing for many months. He was also experiencing acid reflux, though notes this resolved with onset of Omeprazole, prescribed by MD. He was seen for a non-instrumental swallow evaluation and MBSS was recommended for further workup. Previous Imaging: No prior MBSS IMPRESSIONS: MBSS findings reveal oral pharyngeal swallow function is within normal limits. There is no evidence of penetration, aspiration, or pharyngeal retention. There is a small Zenker's Diverticulum present- with trace to mild retention of liquids immediately after the swallow. No regurgitation above the UES appreciated on the study. Education provided to patient re: Zenker's Diverticulum dx and standard precautions as listed below. He expressed I'd like to just live with it if I can. No further ROLL FORGER needs identified. Specialist referrals:? N/A - follow up with PCP to discuss further RECOMMENDATIONS: Diet Texture/IDDSI Level Recommendation:? SOLIDS 7-Regular/Easy to Chew Solids. Add extra moisture to solids, cut food small, and chew very thoroughly. LIQUIDS? 0-Thin Liquids MEDICATIONS whole with sips of water, or consider taking in spoonful of applesauce/yogurt. Do not alter medications (e.g., cut)? without advice from your MD or pharmacist. Risk Management Strategies:? Behavioral reflux precautions, including upright position during + 90 mins after meals. Small bites, approx [id number] Small sips, approx 10 mL Alternate solids/liquids every few bites/ as indicated PLAN: No further ST warranted. Procedure only. OBJECTIVE Videofluoroscopic Swallow Evaluation (VFSE/MBSS) was conducted in the lateral and [id number] projection by Speech-Language Pathologist, in collaboration with Radiologist, to evaluate oropharyngeal swallow function. Anatomic view under fluoroscopy: WFL PO Barium Contrast Trials Oral barium water-soluble contrast was administered as follows: IDDSI Level 0 Varibar thin liquid (40% w/v) IDDSI Level 2 Varibar nectar thick/mildly thick liquid (40% w/v) IDDSI Level 7 Regular Solid: 1/2 gregory cracker coated in 3 mL Varibar pudding MBSImP Component Scores: COMPONENT Scale SCORE 1 Lip closure (0-4) 0 Resulted in no labial escape 2 Hold Position (0-3) 0 Maintained a cohesive bolus between tongue to palatal seal 3 Bolus Preparation (0-4) 0 Resulted in timely and efficient chewing and mashing 4 Bolus Transport (0-4) 0 Was with brisk tongue motion 5 Oral Residue (0-4) 0 Was not observed. There was complete oral clearance 6 Swallow Initiation (0-4) 1 Occurred when the bolus head was in valleculae 7 Soft Palate Elevation (0-4) 0 Resulted in no bolus between soft palate and the pharyngeal wall 8 Laryngeal Elevation (0-3) 0 Demonstrated complete superior movement of thyroid cartilage with complete zafar roximation of arytenoids to epiglottic petiole 9 Anterior Hyoid Motion (0-2) 0 Demonstrated complete anterior movement 10 Epiglottic Movement (0-2) 0 Resulted in complete inversion 11 Laryngeal Closure (0-2) 0 Was complete with no air or contrast in laryngeal vestibule 12 Pharyngeal Stripping Wave (0-2) 0 Was present and complete 13 Pharyngeal Contraction (0-3) 0 Complete 14 PES Opening (0-3) 0 Was completely distended and complete duration with no obstruction of flow 15 Tongue Base Retraction (0-4) 0 Allowed no contrast between the tongue base and posterior pharyngeal wall 16 Pharyngeal Residue (0-4) 0 Was not present. There was complete pharyngeal clearance 17 Esophageal Clearance (0-4) - AP viewing through mid-esophagus is unremarkable. There is a mild Zenker's Diverticulum as described above. Results: COMPONENT Scale SCORE 1 Oral Score (0-18) 1 2 Pharyngeal Score (0-29) 0 3 Esophageal Score (0-4) 0 Functional Oral Intake Scale: COMPONENT Scale SCORE 1 Pre-Study (1-7) 7 Total oral intake with no restrictions 2 Post-Study (1-7) 7 Total oral intake with no restrictions Penetration-Aspiration Scale: COMPONENT Scale SCORE 1 Thin liquid (1-8) 1 Contrast did not enter the airway 2 [place] thick (1-8) 2 Contrast entered the airway, remained above the vocal folds, and was ejected from the airway. 3 Honey thick (1-8) 1 Contrast did not enter the airway 4 Pudding thick (1-8) 1 Contrast did not enter the airway 5 Cookie (1-8) 1 Contrast did not enter the airway Thank you for allowing us to take part in this patient's care. Please feel free to contact the [facility] Speech Language Pathology Department with any questions/concerns.
== END ==
PROVIDERS: PCP Nurse Practitioner Family; Visit Provider Nurse Practitioner Family
DX: R13.10 Dysphagia, unspecified (principal)
CPT/HCPCS: 92526; 74221

== ENCOUNTER → 2024-01-23 02:03 | Outpatient (CLI) | payer MEDICARE, SELFPAY ==
--- NOTE | 2024-01-23 08:30 | DI.US_ITS ---
APPROVED REPORT EXAM: Comprehensive 2D, Doppler, and color-flow Echocardiogram Patient Location: Out-Patient Production Line Operator: Akash Cage RDCS (AE) Indications: HTN, HLD, history of aortic valve repair? and mitral valve regurg Conclusion Left ventricle is mildly dilated. Wall thickness is normal. EF is 50 to 55% with mild global hypoki nesis Mildly dilated right ventricle with preserved systolic function Both atria are moderately enlarged Trileaflet aortic valve with trace regurgitation Patient is status post mitral valve repair with an annuloplasty ring. There is mild residual mitral regurgitation Normal tricuspid valve with moderate regurgitation. Estimated right ventricular systolic pressure is 42 mmHg Wall motion Left Ventricle Left ventricle is mildly dilated. Left ventricular systolic function is borderline. There is normal l eft ventricular wall thickness. There is mild global hypokinesis of the left ventricle. There is no v entricular septal defect visualized. LVEF is 50-55%. Right Ventricle Right ventricle is mildly dilated. Right ventricular systolic function is grossly normal. Atria Left atrium is moderately dilated. Right atrium is moderately dilated. The interatrial septum is inta ct with no evidence for an atrial septal defect. Aortic Valve The aortic valve is normal in structure. Aortic valve is trileaflet. There is no aortic valvular sten osis. Trace aortic regurgitation. Mitral Valve Status post miitral valve annuloplasty. No evidence of mitral valve stenosis. Mild mitral regurgitati on. Tricuspid Valve The tricuspid valve is normal in structure. There is no tricuspid valve stenosis. Moderate tricuspid regurgitation. The RVSP is 42.8 mmHg. Pulmonic Valve The pulmonary valve is normal in structure. There is no pulmonic valvular stenosis. There is no pulmo darline valvular regurgitation. Great Vessels The aortic root is normal in size. The ascending aorta is normal in size. Aortic arch is normal in ca liber. IVC is normal in size and collapses >50% with inspiration. Pericardium There is no pericardial effusion. 2D Dimensions IVSD d PLAX 0.90 cm M: 0.6-1.2 Ao Root d 3.57 cm M: 3.1 - 3.7 LVPW d PLAX 0.90 cm M: 0.6 - 1.2 Ao Asc Diam d 3.21 cm M: 2.6 - 3.4 LVID d PLAX 6.38 cm M: 4.2 - 5.8 LVDs 4.65 cm M: 2.5 - 4.0 LV EF Teichholz 51.6 % FS 27.00 % LV EDV (Teich) 206.8 mL LV ESV (Teich) 100.1 mL Stroke Vol Index (Teich) 50.09 M-Mode TAPSE 1.60 cm (M/F) >1.7 Auto EF LV EDV A4C 193.3 mL LV EDV A2C 165.6 mL LV EDV BP 183.4 mL LV ESV A4C 98.6 mL LV ESV A2C 78.4 mL LV ESV BP 87.0 mL LVEF(%) A4C 49.0 % LVEF(%) A2C 52.6 % LVEF(%) BP 52.6 % LV SV A4C 94.7 ml LV SV A2C 87.2 ml LV SV BP 96.4 ml LV CO A4C 5.2 L/min LV CO A2C 4.5 L/min LV CO BP 4.9 L/min HR A4C 54.80 BPM HR A2C 52.03 BPM LV EDV Index (BP) LA Volume LA Length A4C 4.9 cm LA Length A2C 5.6 cm LA Area A4C s 17.85 cm2 LA Area A2C s 21.17 cm2 LA Vol A4C A-L 55.10 mL LA Vol A2C A-L 68.20 mL LA Vol Biplane A-L 65.3 mL LA Vol/BSA A4C A-L LA Vol/BSA A2C A-L LA Vol/BSA BP A-L 30.7 mL/m2 LA Vol A4C MOD 51.5 mL LA Vol A2C MOD 65.3 mL LA Vol BP MOD 61.5 mL RA Volume RA Area A4C 20.5 cm2 RA ESV A4C (A-L) 63.8mL RA Vol/BSA A4C A-L RA Length A4C 5.6 cm RA ESV A4C (MOD) 65.2mL LV Diastology MV E' medial 0.059 (>0.07 m/s) MV E Vmax 1.32 (0.4-1.3 m/s) MV E/E' MED 22.35 (<14) MV A Vmax 0.75 (0.4-1.3 m/s) MV E' lateral 0.117 (>0.1 m/s) E/A Ratio 1.8 MV E/E' LAT 11.25 (<14) MV E' Average 0.088 m/s MV E/E'(average) 14.97 Aortic Valve AoV Vmax 1.09 m/s LVOT Vmax 1.06 m/s AoV Peak Grad 31.1 mmHg LVOT Peak Grad 4.5 mmHg AoV Area (Vmax) 3.84 cm2 LVOT VTI 0.298 m AoV VTI 0.298 m LVOT Mean Grad 2.9 mmHg AoV Mean Paul. 0.77 m/s LVOT SV 117.47 mL AoV Mean Grad 2.7 mmHg LVOT Diam s 2.20 cm AoV Area (VTI) 3.95 cm2 AV Regurg Peak Gr. 57.50 mmHg Velocity Ratio 0.97 AR Decel [place] 1.3m/sec2 AR DT 2829 msec AR PHT 820 msec AR Vmax 3.79 m/s Mitral Valve MV DT 180 (160-240 msec) Pulmonary Valve PV Vmax 0.66 (0.5-1.5 m/s) RVOT Vmax 0.30 m/s PV Peak Grad 1.7 mmHg RVOT Peak Gr. 0.4 mmHg PV Mean Paul 0.50 m/s RVOT VTI 0.081 m PV Mean Grad 1.1 mmHg RVOT Mean Gr. 0.2 mmHg Tricuspid Valve RA Pressure 3.00 mmHg TR Vmax 3.16 m/s TR Peak Grad 39.8 mmHg RVSP (TR) 42.8 mmHg
== END ==
PROVIDERS: PCP Nurse Practitioner Family; Visit Provider Surgery
DX: Z95.2 Presence of prosthetic heart valve (principal); I10 Essential (primary) hypertension; I34.0 Nonrheumatic mitral (valve) insufficiency; E78.5 Hyperlipidemia, unspecified; R73.9 Hyperglycemia, unspecified
CPT/HCPCS: 93306

== ENCOUNTER 2024-04-19 13:30 | Outpatient (CLI) | payer MEDICARE, SELFPAY ==
--- NOTE | 2024-04-19 13:45 | RT.EKG_ITS ---
APPROVED REPORT Exam: Resting ECG Reason for Exam: NPW Baseline needed Patient Location: O HR:57 bpm ECG Measurements Heart Rate 57 AXIS OH 168 P 46 QRSd 114 QRS 9 QT 422 T 41 QTc 411 Conclusion Sinus rhythm...normal P axis, V-rate 50- 99 Ventricular premature complex...V complex w/ short R-R interval Otherwise normal ECG
== END 2024-04-19 13:31 | disposition home or self-care (01) ==
LOC: DI.CARD 13:46
PROVIDERS: PCP Nurse Practitioner Family; Referring Provider Nurse Practitioner Family; Visit Provider Internal Medicine Cardiovascular Disease
DX: Z95.2 Presence of prosthetic heart valve (principal); I10 Essential (primary) hypertension
CPT/HCPCS: 93010

== ENCOUNTER → 2024-04-19 13:30 | Outpatient (BNVA) | payer MEDICARE, SELFPAY | PROVIDERS: PCP Nurse Practitioner Family; Referring Provider Nurse Practitioner Family; Visit Provider Internal Medicine Cardiovascular Disease | DX: Z95.2 Presence of prosthetic heart valve (principal); I10 Essential (primary) hypertension; R12 Heartburn; Z98.890 Other specified postprocedural states | CPT/HCPCS: 93005; 99214 ==

== ENCOUNTER 2024-06-18 22:49 | Outpatient (REF) | payer MEDICARE, SELFPAY ==
[2024-06-18 14:59] LABS: Bilirubin Negative (Negative); Blood Negative (Negative); Clarity Clear (Clear); Glucose Negative (Negative); Ketones Negative (Negative); Leukocyte Esterase Negative (Negative); Nitrite Negative (Negative); Specific Gravity 1.015 (1.005-1.025); Urobilinogen 0.2 mg/dL (Up to 0.2)
[2024-06-18 17:21] LABS: COMMENT (LAB VIEW ONLY) 73.53 mg/dL; Microalb ug/mg Crea 8.6 ug/mg Cr
== END 2024-06-18 22:50 | disposition home or self-care (01) ==
LOC: NCHCN 22:49
PROVIDERS: PCP Nurse Practitioner Family; Visit Provider Nurse Practitioner Family
DX: I10 Essential (primary) hypertension (principal)
CPT/HCPCS: 81003; 82043; 82570

== ENCOUNTER 2024-12-12 16:27 | Outpatient (REF) | payer MEDICARE, SELFPAY ==
[2024-12-12 15:54] LABS: ALT 25 U/L (16-63); AST 17 U/L (15-37); Albumin 4.4 g/dL (3.4-5.0); Alkaline Phosphatase 55 U/L (46-116); Anion Gap 4.3 mmol/L (3-11); BUN 24 mg/dL (7-18); Bilirubin, Total 1.8 mg/dL (0.2-1.0); CO2 30.7 mmol/L (21.0-32.0); CREATININE 1.3 mg/dL (0.70-1.30); Calcium 9.9 mg/dL (8.5-10.1); Calculated LDL 100 mg/dL (<100); Chloride 108 mmol/L (98-107); Cholesterol 188 mg/dL (<200); Estimated GFR 55.19 (mL/min/1.73m2); Glucose 110 mg/dL (74-106); HDL Cholesterol 65 mg/dL (>or=40); Magnesium 2.2 mg/dL (1.8-2.4); Sodium 143 mmol/L (136-145); Total Protein 6.9 g/dL (6.4-8.2); Triglyceride 118 mg/dL (<150); Vitamin B12 243 pg/mL (193-986)
[2024-12-12 16:07] LABS: Potassium 6.1 mmol/L (3.5-5.1)
== END 2024-12-12 16:28 | disposition home or self-care (01) ==
LOC: NCHCN 16:27
PROVIDERS: PCP Nurse Practitioner Family; Visit Provider Nurse Practitioner Family
DX: I10 Essential (primary) hypertension (principal); K30 Functional dyspepsia; E78.5 Hyperlipidemia, unspecified
CPT/HCPCS: 80053; 80061; 82607; 83735

== ENCOUNTER 2024-12-13 08:24 | Outpatient (CLI) | payer MEDICARE, SELFPAY ==
[2024-12-13 09:19] LABS: Anion Gap 8.9 mmol/L (3-11); BUN 20 mg/dL (7-18); CO2 27.1 mmol/L (21.0-32.0); CREATININE 1.1 mg/dL (0.70-1.30); Calcium 9.4 mg/dL (8.5-10.1); Chloride 107 mmol/L (98-107); Estimated GFR 67.44 (mL/min/1.73m2); Glucose 114 mg/dL (74-106); Potassium 4.4 mmol/L (3.5-5.1); Sodium 143 mmol/L (136-145)
== END 2024-12-13 08:25 | disposition home or self-care (01) ==
LOC: LBO 08:25
PROVIDERS: PCP Nurse Practitioner Family; Visit Provider Nurse Practitioner Family
DX: I10 Essential (primary) hypertension (principal)
CPT/HCPCS: 36415; 80048

== ENCOUNTER → 2025-04-11 07:41 | Outpatient (BNVA) | payer MEDICARE, SELFPAY | PROVIDERS: PCP Nurse Practitioner Family; Referring Provider Nurse Practitioner Family; Visit Provider Surgery | DX: R13.10 Dysphagia, unspecified (principal); R09.A2 Foreign body sensation, throat; K21.9 Gastro-esophageal reflux disease without esophagitis | CPT/HCPCS: 99214 ==

== ENCOUNTER 2025-04-24 11:00 | Day surgery (SDC) | payer MEDICARE, SELFPAY ==
[2025-04-24 11:45] VITALS: BP 143/78; PULSE 54; RESP 16; TEMP 36.5; O2SAT 97
[2025-04-24] MEDS: Lactated Ringers 1,000 ML 80 ML IV (12:10)
--- NOTE | 2025-04-24 14:32 | W.ANESPRE ---
General Info Date of Service Date Performed: 04/24/25 Height: 6 ft 2 in Weight: 84.8 kg Body Mass Index (BMI): 24.0 Surgical Procedure: Operation Date: 04/24/25 12:20 Proposed Procedure Side Surgeon p Gastroscopy Nahomy Cormier MD Meds Allergies and Home Medications Allergies Allergy/AdvReac Type Severity Reaction Status Date / Time metoprolol AdvReac Unknown lightheaded Verified 04/24/25 11:37 ness-bradyc ardia Home Medication ?Medication ?Instructions ?Recorded amlodipine 5 mg tablet 5 mg PO DAILY 11/27/23 tadalafil 10 mg tablet 20 mg PO DAILY PRN 03/28/25 pantoprazole 40 mg tablet,delayed 40 mg PO BID 04/23/25 release (Protonix) Current Visit Medications: Current Medications Generic Name Dose Route Start Last Admin Trade Name Freq PRN Reason Stop Dose Admin Ringer's Solution 1,000 mls @ 80 mls/hr 04/24/25 06:00 04/24/25 12:10 IV 04/24/25 23:59 80 mls/hr INFUSION SEGUN Administration IV Miscellaneous Supplies 1 each 04/24/25 06:00 Iv Access IV 04/24/25 23:59 DIRECTED SEGUN Sodium Chloride 0 ml 04/24/25 06:00 Normal Saline Flush 10 Ml Syr IV 04/24/25 23:59 PRN PRN Sodium Chloride 0 ml 04/24/25 06:00 Normal Saline 10 Ml Vial IJ 04/24/25 23:59 DIRECTED PRN Sterile Water 0 ml 04/24/25 06:00 Water,Injection,Sterile 10 Ml Vial IJ 04/24/25 23:59 DIRECTED PRN PFSH Active Problems Active Problems: Problem Status Onset Code Chronic GERD Acute K21.9 Globus sensation Acute R09.A2 Dysphagia Acute R13.10 Cervicalgia Acute M54.2 Scapulothoracic bursitis of right shoulder Acute M75.51 Status post arthroscopy of right knee Acute 11/16/21 Z98.890 Salmonella Acute A02.9 Mucous cyst of digit of right hand Acute M67.441 Mucous cyst of finger Acute M67.449 Arthritis Acute M19.90 Colon polyp Acute K63.5 Acute shoulder pain Acute M25.519 Dislocation of shoulder, right, closed Acute 07/11/20 S43.004A Traumatic tear of right rotator cuff Acute 07/11/20 S46.011A Tendonitis of long head of biceps brachii of right shoulder Acute M75.21 Bursitis of right shoulder Acute M75.51 Internal derangement of right knee Acute M23.91 Osteoarthritis of right knee Acute M17.11 Gastrocnemius muscle tear Acute S86.119A Complex tear of medial meniscus of right knee Acute S83.231A Tear of lateral meniscus of right knee Acute S83.281A Medical History Medical History Sebaceous hyperplasia Seborrheic keratosis Aortic dilatation Erectile dysfunction Hyperglycemia Hyperlipidemia Mitral valve regurgitation Nonulcer dyspepsia Cataract Depressive disorder Heartburn Hypertension History of Lyme disease Ramon cyst surgery Medical History Comments:: coffee with small amount of creamer at 0615 today( 04/24/25) Surgical History Surgical History Hx of shoulder surgery right, 2020 S/P colonoscopy 07/02/19 History of foot surgery (right) History of right cataract extraction History of left knee surgery pt. states it is R knee History of left cataract surgery H/O mitral valve repair 2001 ([place], [place]) (Pt. states everything has been in good working order, hasn't had to f/u with cardiology) History of open heart surgery Valve repair Tobacco Smoking/Tobacco Use Status: Never Alcohol Alcohol Intake: current Alcohol intake frequency: 0-2 drinks per day Alcohol type: beer Substance Use Substance use: Never Substance use type: does not use Details: alcohol: t-1, couple Vital Signs and Lab Results Vital Signs Most Recent Vital Signs in EMR: Most Recent Vital Signs Temp Pulse Resp BP Pulse Ox 36.5 C 54 L 16 143/78 H 97 04/24/25 11:45 04/24/25 11:45 04/24/25 11:45 04/24/25 11:45 04/24/25 11:45 Anesthesia Assessment and Plan Anesthesia History Personal History: No History of Anesthesia Complications Family History: No Family History of Anesthesia Complications Exercise Tolerance Exercise Tolerance: Metabolic Equivalents>4 Pertinent Negatives Pertinent Negatives: No Symptoms of GERD Cardiac & Pulmonary Exam Cardiac Exam: Normal S1/S2 Heart Sounds Pulmonary Exam: Clear Bilateral Breath Sounds Implantable Cardiac Device Does patient have a Pacemaker or an ICD?: No Airway Exam Known Difficult Airway: No Mallampati Class: 2 Mouth Opening: Normal (> 3cm) Thyromental Distance: Greater than 3 cm Neck Range of Motion: Full ROM Neck Circumference: Normal Teeth Condition: Removable Dentures/Plates Upper and Removable Dentures/Plates Lower ASA Classification ASA Score: ASA 3 Emergency Case?: No NPO Status NPO Status: NPO Clears >2 hours, Solids >8 hours Anesthesia Plan Resuscitation Status: Full Code Anesthesia Technique: General Anesthesia Airway Planned: Natural Airway Monitors Used: Standard Monitors
[2025-04-24 14:33] VITALS: BMI 24.0
--- NOTE | 2025-04-24 14:35 | HPE_ITS ---
Date of service: 04/24/25 Time of Service: 14:35 Assessment and Plan Assessment and plan (1) Dysphagia: Status: Acute Assessment and plan: EGD planned for assessment and possible dilation. Prcedure reviewed and consent signed previously. proceed as planned. (2) Globus sensation: Status: Acute (3) Chronic GERD: Status: Acute History of Present Illness Narrative: 79yo M with dysphagia, on BID PPI since office visit a couple weeks ago. Some reduction in sympyoms since then but still feels tightess and food sticking in throat every 3-4 days. PFSH All Active Problems Chronic GERD (Acute) Globus sensation (Acute) Dysphagia (Acute) Cervicalgia (Acute) Scapulothoracic bursitis of right shoulder (Acute) Status post arthroscopy of right knee (Acute 11/16/21) Salmonella (Acute) Mucous cyst of digit of right hand (Acute) Mucous cyst of finger (Acute) S/P LMF mucous cyst excision DOS: 12/26/18 Dr. Llanos Arthritis (Acute) Colon polyp (Acute) Acute shoulder pain (Acute) Dislocation of shoulder, right, closed (Acute 07/11/20) Traumatic tear of right rotator cuff (Acute 07/11/20) Tendonitis of long head of biceps brachii of right shoulder (Acute) Bursitis of right shoulder (Acute) Internal derangement of right knee (Acute) Osteoarthritis of right knee (Acute) Gastrocnemius muscle tear (Acute) Complex tear of medial meniscus of right knee (Acute) S/P right knee arthroscopy with partial medial meniscectomy: 11/16/2021 Tear of lateral meniscus of right knee (Acute) Medical History Sebaceous hyperplasia Seborrheic keratosis Aortic dilatation Erectile dysfunction Hyperglycemia Hyperlipidemia Mitral valve regurgitation Nonulcer dyspepsia Cataract Depressive disorder Heartburn Hypertension History of Lyme disease Ramon cyst surgery Surgical History Hx of shoulder surgery right, 2020 S/P colonoscopy 07/02/19 History of foot surgery (right) History of right cataract extraction History of left knee surgery pt. states it is R knee History of left cataract surgery H/O mitral valve repair 2001 (In [place], [place]) (Pt. states everything has been in good working order, hasn't had to f/u with cardiology) History of open heart surgery Valve repair Social History Smoking/Tobacco Use Status: Never Smoking risk assessment performed?: Yes Alcohol Intake: current Alcohol Intake frequency: 0-2 drinks per day Alcohol t ype: beer Drug use: Never Substance use type: does not use Details: alcohol: t-1, couple Current gender identity: male Do you feel safe at home: Yes Do you feel safe in your relationship?: Yes Additional Social history: UTAP Meds Allergies and Home Medications Allergies Allergy/AdvReac Type Severity Reaction Status Date / Time metoprolol AdvReac Unknown lightheaded Verified 04/24/25 11:37 ness-bradyc ardia Home Medications ?Medication ?Instructions ?Recorded ?Confirmed ?Type amlodipine 5 mg tablet 5 mg PO DAILY 11/27/2304/24 History tadalafil 10 mg tablet 20 mg PO DAILY PRN 03/28/25 04/24/25 History pantoprazole 40 mg tablet,delayed 40 mg PO BID 5 04/24/25 History release (Protonix) Exam Narrative Exam Narrative: awake, NAD eomi, MMM midline trachea, neck is symmetric PULM: normal resp effort, equal chest rise with respiration, no wheezing audible CARDIAC: normal PMI, no jvd, regular rate, normal perfusion abdomen is nondistended. extremities are without deformity, normal movement of all four extremities speech is clear and coherent mood and affect are congruent, no focal neurological deficits skin without rash Results Last Vital Signs Temp 97.7 F 04/24/25 11:45 Pulse 54 L 04/24/25 11:45 Resp 16 04/24/25 11:45 BP 143/78 H 04/24/25 11:45 Pulse Ox 97 04/24/25 11:45 Time Spent Time spent with Patient: <40 minutes Time was spent: preparing to see the patient(eg.review tests), referring, communicating with other health resident care manager rn and counseling the patient
--- NOTE | 2025-04-24 14:39 | W.PM.DSUDISC ---
Date of service: 04/24/25 Discharge Plan Disposition Patient Disposition: Home Condition: Stable Discharge Details Attending Provider: Nahomy Cormier Primary Care Provider: Gem Segura Home Meds and New Rx's Prescriptions: Continued amlodipine 5 mg tablet 5 mg PO DAILY tadalafil 10 mg tablet 20 mg PO DAILY PRN Patient Comments: pt. states he does not know about this Rx Instructions: administer approximately 30min before sexual activity; do not use more than 1 dose per 24hrs pantoprazole [Protonix] 40 mg tablet,delayed release (DR/EC) 40 mg PO BID Discharge Instructions Additional Instructions: EGD today shows: Hiatal hernia, small Mild to moderate esophagitis which is esophagus irritation from reflux small stomach polyp that was removed. No stricture or esophageal growth or cancer to account for swallowing and lump in throat. stomach and esophageal biopsies will be reviewed and discussed at follow up appointment. Symptoms may be due to uncontrolled acid reflux through the hiatal hernia. Continue twice daily pantoprazole for another 2 weeks, then decrease to daily. This will help determine if symptoms improve with better reflux control. Office follow up in 2-4 weeks. Video swallow test to look at the mechanisms of swallow in the actual throat will be ordered. Stand Alone Forms: Anesthesia Discharge Inst., DSU Post EGD Instructions, [place] (DS[facility]) Activity:: Activity as Tolerated Diet:: As Tolerated Discharge Orders Discharge Orders: Discharge Order (Routine); Ordered 04/24/25 Ordered By: Nahomy Cormier DS: Diagnosis Discharge Diagnosis (1) Dysphagia: Status: Acute (2) Globus sensation: Status: Acute (3) Chronic GERD: Status: Acute (4) Hiatal hernia with GERD and esophagitis: Status: Acute (5) Polyp of stomach: Status: Acute
--- NOTE | 2025-04-24 14:40 | ENDO_ITS ---
Date of service: 04/24/25 Time of Service: 14:40 Endoscopy Report DATE OF PROCEDURE: 04/17/25 PRE-OP DIAGNOSIS: Dysphagia. globus sensation, chronic GERD POST-OP DIAGNOSIS: same PROCEDURE: EGD with biopsy SURGEON: Nahomy Cormier ANESTHESIA TYPE: General:No Airway ESTIMATED BLOOD LOSS: 2 PATHOLOGY: other (1. antrum polyp. 2. antrum biopsy. 3. distal esophagus biopsy) COMPLICATIONS: None DISPOSITION: same day INDICATIONS: Evaluation of upper digestive system for epigastric pain source/cause PROCEDURE DESCRIPTION: Lubricated endoscope was passed through a bite block into the second portion of the duodenum. The endoscope was withdrawn and the duodenum stomach and esophageal mucosa examined. The duodenum appeared normal. There is no inflammation or ulceration or ero tray. The antrum appears normal. There is a polypoid lesion at the pylorus that was biopsied with cold forceps. Measured 5mm, sessile. The fundus appears normal. The cardia appears normal. There is small hiatal hernia noted upon retroflexion. The distal esophagus shows evidence of chronic inflammation without ulceration varices or candidiasis. GE junction is located at 40cm from the teeth. The Z- line is irregular in one area. Remainder of the esophagus appears normal without stricture or narrowing. Cold forceps biopsies obtained from the antrum and the distal esophagus for microscopic evaluation for H. pylori, esophagitis, barretts metaplasia. The upper digestive system was desufflated and the endoscope withdrawn. Vocal cords appear symmetric and mildly edematous. No mass lesions. No complications. Assessment and plan: Hiatal hernia, small Mild to moderate esophagitis antrum polyp No stricture or esophageal lesions to account for dysphagia. Antral and esophageal biopsies will be reviewed and discussed at follow up appointment. Dysphagia may be due to uncontrolled GERD through the hiatus hernia. Continue BID PPI for another 2 weeks then decrease to daily. This will help determine if dysphagia improves w reflux control. Office follow up in 2-4 weeks. Video swallow will be ordered.
--- NOTE | 2025-04-24 14:59 | STOM_PTH ---
PATIENT: Sav Rose LOC: [facility] U#:[id number] AGE/SX: 79/M ROOM: RE04/24/[address]: Nahomy Cormier MD : [id number] BED: DIS: 04/24/2025 SPEC #: [id number] RECD: 04/24/25 16:01 STATUS: KIMBERLY GERMAIN #: [id number] CLOVIS: 04/24/25 14:[address]: Nahomy Cormier DEPT: Surgical Specimen RECD BY: Anamika Saldana ENTERED: 04/24/25 16:02 SP TYPE: STOMACH OTHR DR: Gem Segura Tissues: 1 - STOMACH BIOPSY 2 - STOMACH BIOPSY 3 - ESOPHAGUS BIOPSY Procedures: GROSS AND MICRO LEVEL 4 SPECIAL STAIN 1 Comments: [id number]
[2025-04-24 15:06] VITALS: BP 125/68; PULSE 57; RESP 16; TEMP 36.5; O2SAT 99
--- NOTE | 2025-04-24 15:13 | W.ANESPOSTOP ---
Postoperative Evaluation Date, Time and Location Date Performed: 04/24/25 Time Performed: 15:13 Patient Location: Day Surgery Unit Vital Signs Most Recent Imported Vital Signs: Most Recent Vital Signs Temp Pulse Resp BP Pulse Ox 36.5 C 54 L 16 143/78 H 97 04/24/25 11:45 04/24/25 11:45 04/24/25 11:45 04/24/25 11:45 04/24/25 11:45 Pain Score Most Recent Pain Score: Most Recent Pain Score Pain Level 0 04/24/25 11:45 Assessment Mental Status: Awake (Alert & Oriented to Patient Baseline) Airway and Respiratory Function: Patent airway with normal (patient baseline) respiratory exam Cardiovascular Function: Hemodynamically Stable Hydration Status: Adequately Hydrated Nausea & Vomiting: No Nausea or Vomiting Pain: Pt. Denies Any Pain Peripheral Nerve Block: Patient did not receive a nerve block
[2025-04-24 15:42] VITALS: BP 160/89; PULSE 56; RESP 16; TEMP 36.4; O2SAT 100
== END 2025-04-24 16:21 | disposition home or self-care (01) ==
LOC: SUR 11:01
PROVIDERS: PCP Nurse Practitioner Family; Visit Provider Surgery
PROC: 0DJ68ZZ Inspection of Stomach, Via Natural or Artificial Opening Endoscopic (ICD-10-PCS; CPT 43235; principal; 2025-04-24 12:15)
DX: R13.10 Dysphagia, unspecified (principal); R09.A2 Foreign body sensation, throat; K21.9 Gastro-esophageal reflux disease without esophagitis; K44.9 Diaphragmatic hernia without obstruction or gangrene; K31.7 Polyp of stomach and duodenum; K31.9 Disease of stomach and duodenum, unspecified; K20.90 Esophagitis, unspecified without bleeding
CPT/HCPCS: 43239; 88305; 88312; J2704

== ENCOUNTER → 2025-05-23 08:41 | Outpatient (BNVA) | payer MEDICARE, SELFPAY | PROVIDERS: PCP Nurse Practitioner Family; Referring Provider Nurse Practitioner Family; Visit Provider Surgery | DX: R13.10 Dysphagia, unspecified (principal); K44.9 Diaphragmatic hernia without obstruction or gangrene; K21.00 Gastro-esophageal reflux disease with esophagitis, without bleeding; R09.A2 Foreign body sensation, throat | CPT/HCPCS: 99214 ==

== ENCOUNTER 2025-06-19 11:00 | Outpatient (REF) | payer MEDICARE, SELFPAY ==
[2025-06-19 16:36] LABS: Microalb ug/mg Crea 10.3 ug/mg Cr
== END 2025-06-19 11:01 | disposition home or self-care (01) ==
LOC: NCHCN 11:00
PROVIDERS: PCP Nurse Practitioner Family; Visit Provider Nurse Practitioner Family
DX: I10 Essential (primary) hypertension (principal)
CPT/HCPCS: 82043; 82570